=== PATIENT | female | born 1935 | race Caucasian/White ===

== ENCOUNTER 2018-10-15 11:23 | Emergency (ER) | payer OTHER ==
--- NOTE | 2018-10-15 11:47 | PDOC ---
History of Present Illness - General Chief Complaint: Pain Stated Complaint: PAIN TO BOTH KNEES Time Seen by Provider: 10/15/18 11:46 - History of Present Illness Initial Comments: 10/15/18 12:09 Chief complaint: Pain and swelling right knee History of present illness: Patient has noted pain and swelling in the right knee gradually worsening over the course of several days. No acute injury. The pain is primarily located lateral to the patella and radiates to the thigh and the calf. Review of systems: No acute injury or strain as noted above. No distal numbness tingling pain or weakness in the foot or ankle. No posterior calf swelling or pain. No chest pain, shortness of breath, abdominal pain, nausea, vomiting, diarrhea, visual or focal neurologic symptoms. Gait is impaired because of pain and favoring of the right knee. Past medical history: High blood pressure, elevated cholesterol, hypothyroidism on appropriate medications Social/family history reviewed and noncontributory Physical exam: Alert and oriented well-developed well-nourished no acute distress cheerful and cooperative Afebrile, vital signs normal HEENT clear Neck supple without bruit mass or nodes Chest clear CV regular without murmur or gallop Abdomen benign Right knee: There is moderate diffuse swelling of the knee with diffuse tenderness to palpation, but more pronounced over the lateral collateral ligament. No leigha effusion is appreciated. There is full range of motion. Examination of the ligaments for stress tenderness or laxity is impaired by the size of the leg and the patient's guarding. Pulses full. No distal sensory or motor deficits. Swelling or tenderness, no pelvic or cords, Homans negative. Impression: Trauma, this is most likely a flareup with superimposed osteoarthritis. Rule out displacement of prosthesis. Rule out less likely possibility of DVT. Plan: X-ray and venous Doppler. Further management depending on results. Past History - Past Medical History Allergies/Adverse Reactions: Allergies Allergy/AdvReac Type Severity Reaction Status Date / Time No Known Drug Allergies Allergy Verified 10/15/18 11:30 Home Medications: Ambulatory Orders Amlodipine Besylate 20 mg PO DAILY 10/15/18 Atorvastatin Ca [Lipitor] 20 mg PO HS 10/15/18 Cholecalciferol (Vitamin D3) [Vitamin D3] 2,000 unit PO DAILY 10/15/18 Cranberry Fruit Extract [Cranberry] 650 mg PO 10/15/18 Cyanocobalamin (Vitamin B-12) [Vitamin B12] 2,500 mcg PO DAILY 10/15/18 Levothyroxine [Synthroid -] 100 mcg PO DAILY 10/15/18 Losartan/Hydrochlorothiazide [Losartan-Hctz 100-25 mg Tab] 1 tab PO DAILY Omeprazole 20 mg PO DAILY 10/15/18 Oxycodone HCl/Acetaminophen [Percocet 5-325 mg Tablet] 1 - 2 tab PO Q6H PRN #20 tab MDD 8 10/15/18 Polyethylene Glycol 3350 [Miralax 119 gm Btl -] 1 tsp PO HS 10/15/18 Potassium Chloride 20 meq PO DAILY 10/15/18 Anemia: No Asthma: No Cancer: No Cardiac Disorders: No CVA: No COPD: No CHF: No Dementia: No Diabetes: No GI Disorders: Yes (HEARTBURN) Disorders: Yes (FREQUENT UTIS-DECREASED SINCE USING CRANBERRY) HTN: Yes Hypercholesterolemia: Yes Liver Disease: No Seizures: No Thyroid Disease: Yes (HYPOTHYROIDISM) - Surgical History Abdominal Surgery: No Appendectomy: No Cardiac Surgery: No Cholecystectomy: No Lung Surgery: No Neurologic Surgery: No Orthopedic Surgery: No - Suicide/Smoking/Psychosocial Hx Smoking History: Former smoker Have you smoked in the past 12 months: No If you are a former smoker, when did you quit?: 1981-WAS NOT A HEAVY SMOKER Hx Alcohol Use: Yes ("SELDOM") Drug/Substance Use Hx: No Substance Use Type: Alcohol Hx Substance Use Treatment: No Medical Decision Making - Medical Decision Making 10/15/18 14:57 X-ray and venous Doppler are negative. Prosthesis is intact, in good position, and there is no evidence of DVT Leg is too large for knee immobilizer to be applied. Patient is advised rest ice and elevation. She states that ibuprofen is not helpful, so additional pain medication as prescribed. She has an appointment with her orthopedist in several days, and results of her studies from today were supplied so she could take these to her appointment. Adequately ambulatory upon discharge the son to follow-up as scheduled. *DC/Admit/Observation/Transfer Diagnosis at time of Disposition: Osteoarthritis of right knee Qualifiers: Osteoarthritis type: unspecified Qualified Code(s): M17.11 - Unilateral primary osteoarthritis, right knee - Discharge Dispostion Disposition: HOME Condition at time of disposition: Stable Decision to Admit order: No - Prescriptions Prescriptions: Oxycodone HCl/Acetaminophen [Percocet 5-325 mg Tablet] 1 - 2 tab PO Q6H PRN #20 tab MDD 8 PRN Reason: Severe Pain - Referrals Referrals: Caleb Ortiz MD [Primary Care Provider] - - Patient Instructions Printed Discharge Instructions: DI for Osteoarthritis, DI for Knee Sprain Additional Instructions: Rest, elevate, ice, and medication as needed. See orthopedist as scheduled. Return to ER if symptoms worsen or other symptoms develop. - Post Discharge Activity
[2018-10-15 11:48] VITALS: BP 173/87; PULSE 63; TEMP 98.3; BMI 35.4
== END 2018-10-15 15:14 | disposition home or self-care (01) ==
LOC: FER 11:23
PROC: 2W3QX1Z Immobilization of Right Lower Leg using Splint (ICD-10-PCS; principal; 2018-10-15)
DX: M17.11 Unilateral primary osteoarthritis, right knee (principal); Z87.891 Personal history of nicotine dependence; E03.9 Hypothyroidism, unspecified; E78.00 Pure hypercholesterolemia, unspecified; I10 Essential (primary) hypertension; R12 Heartburn
CPT/HCPCS: 29515; 73560-TC-RT-FY; 93971-TC; 99282-25

== ENCOUNTER 2019-11-19 06:02 | Inpatient (IN) | payer OTHER ==
[2019-11-13 10:15] VITALS: BMI 35.4
--- NOTE | 2019-11-18 18:38 | HP ---
Admitting History and Physical - Admission Chief Complaint: Right hip osteoarthritis x years History of Present Illness: 84 year old female presents in regard to her right hip. Longstanding history of osteoarthritis of her right hip. Patient complains of pain, limited ROM, difficulty with ambulation and completing ADLs. Patient has failed conservative treatment option including PO medications, injections, exercise programs and activity modifications. Radiographs reveal severe osteoarthritis of the right hip joint. At this point, patient would like to proceed with a right total hip arthroplasty, MAKOplasty. History Source: Patient - Past Medical History Cardiovascular: Yes: HTN, Hyperlipdemia, Other (Hypokalemia) Gastrointestinal: Yes: Constipation, GERD Endocrine: Yes: Hypothyroidism - Past Surgical History Additional Past Surgical History: See written history & physical. - Advance Directives Advance Directives: Yes: Health Care Proxy - Smoking History Smoking history: Former smoker Have you smoked in the past 12 months: No If you are a former smoker, when did you quit?: 1980-WAS NOT A HEAVY SMOKER - Alcohol/Substance Use Hx Alcohol Use: Yes ("SELDOM") Home Medications - Allergies Allergies/Adverse Reactions: Allergies Allergy/AdvReac Type Severity Reaction Status Date / Time No Known Drug Allergies Allergy Verified 11/13/19 09:55 - Home Medications Home Medications: Ambulatory Orders Atorvastatin Ca [Lipitor] 20 mg PO HS 10/15/18 Cholecalciferol (Vitamin D3) [Vitamin D3] 2,000 unit PO DAILY 10/15/18 Cyanocobalamin (Vitamin B-12) [Vitamin B12] 2,500 mcg PO DAILY 10/15/18 Levothyroxine [Synthroid -] 100 mcg PO DAILY 10/15/18 Losartan/Hydrochlorothiazide [Losartan-Hctz 100-25 mg Tab] 1 tab PO DAILY 10/15/18 Omeprazole 20 mg PO DAILY 10/15/18 Polyethylene Glycol 3350 [Miralax 119 gm Btl -] 1 appful PO HS 10/15/18 Potassium Chloride 20 meq PO BID 10/15/18 Amlodipine Besylate [Norvasc -] 5 mg PO DAILY 11/13/19 Cranberry 500 mg PO DAILY 11/13/19 Review of Systems - Review of Systems Musculoskeletal: reports: Decreased ROM (right hip), Joint Pain (right hip) Physical Examination Constitutional: Yes: Well Nourished, No Distress Eyes: Yes: Conjunctiva Clear HENT: Yes: Atraumatic Neck: Yes: Supple Cardiovascular: Yes: Regular Rate and Rhythm Respiratory: Yes: Regular Gastrointestinal: Yes: Soft ...Rectal Exam: Yes: Deferred Musculoskeletal: Yes: Joint Stiffness (right hip), Other (Limited ROM right hip) Assessment/Plan 84 year old female presents in regard to her right hip. Longstanding history of osteoarthritis of her right hip. Patient complains of pain, limited ROM, difficulty with ambulation and completing ADLs. Patient has failed conservative treatment option including PO medications, injections, exercise programs and activity modifications. Radiographs reveal severe osteoarthritis of the right hip joint. At this point, patient would like to proceed with a right total hip arthroplasty, MAKOplasty. Pros, cons, risks, benefits and alternatives of a right total hip arthroplasty, MAKOplasty was discussed with the patient at length. Patient confirms their understanding and consents to proceed with a right total hip arthroplasty, MAKOplasty.
[2019-11-19] MEDS ORDERED: BUPIVACAINE HCL/PF 0.5% (5 MG/ML) 30 ML VIAL IJ ONE (06:47)
[2019-11-19] MEDS ORDERED: MIDAZOLAM HCL 2 MG/2 ML SINGLE DOSE VIAL ONE (06:47)
[2019-11-19] MEDS ORDERED: oxyCODONE HCL 10 MG SUSTAINED ACTING TABLET PO ONE (06:51)
[2019-11-19] MEDS ORDERED: CELECOXIB 200 MG CAPSULE PO ONE (06:51)
[2019-11-19] MEDS: PANTOPRAZOLE 40 MG TABLET PO ONE (07:00)
[2019-11-19] MEDS ORDERED: ceFAZolin SODIUM 1 GM VIAL ONE ×2 (07:11→07:20)
[2019-11-19] MEDS ORDERED: VANCOMYCIN 1,000 MG VIAL (RESTRICTED TO ID ONLY) ONE (07:12)
[2019-11-19] MEDS ORDERED: EPHEDRINE SULFATE/0.9% NACL/PF 50 MG/10 ML SYRINGE NR ONE (07:22)
[2019-11-19] MEDS ORDERED: DEXMEDETOMIDINE HCL 200 MCG/2 ML IVPB ONE (07:29)
[2019-11-19] MEDS ORDERED: CEFAZOLIN 2 GM in DEXTROSE 5%-WATER - 50 ML IVPB ONE (08:00)
[2019-11-19] MEDS ORDERED: BUPIVICAINE 0.25%/MORPH PF/KETOROLAC - 51ML DISP.SYRINGE IA ONE ×2 (08:00→10:37)
[2019-11-19] MEDS ORDERED: TRANEXAMIC ACID 1000 MG/10 ML VIAL IVPUSH ONE (08:00)
[2019-11-19] MEDS ORDERED: PROPOFOL 20 ML ONE ×3 (08:53→10:54)
[2019-11-19] MEDS ORDERED: VANCOMYCIN 1,000 MG VIAL (RESTRICTED TO ID ONLY) IVPB ONE ×2 (09:32→10:27)
[2019-11-19] MEDS ORDERED: TRANEXAMIC ACID 1000 MG/10 ML VIAL IVPB ONE ×2 (09:34→11:01)
--- NOTE | 2019-11-19 11:23 | SURG ---
Surgery Batter Scaler Note Batter Scaler: Cruz Delgado PA-C Date of Service: 11/19/19 Diagnosis: Right hip osteoarthritis Procedure: Right hip oscar assisted arthroplasty I was present for the entirety of the operative procedure. For further detail, please refer to operative report. Visit type - Case Type Case Type: Scheduled - Emergency Emergency Visit: No - New patient This patient is new to me today: Yes Date on this admission: 11/19/19 - Critical Care Critical Care patient: No
[2019-11-19] MEDS ORDERED: PROMETHAZINE HCL 25 MG/1 ML VIAL IVPUSH PRN (11:27)
[2019-11-19] MEDS ORDERED: oxyCODONE HCL 5 MG TABLET PO PRN ×2 (11:27)
[2019-11-19] MEDS ORDERED: ONDANSETRON 4 MG/2 ML VIAL IVPUSH PRN ×2 (11:27→11:43)
--- NOTE | 2019-11-19 11:38 | OP ---
Operative Note - Note: Operative Date: 11/19/19 Pre-Operative Diagnosis: right hip OA Operation: Right RANJAN KAYODE Post-Operative Diagnosis: Same as Pre-op Surgeon: Darion Mireles Airplane Engineer: Cruz Delgado Anesthesia: Spinal Estimated Blood Loss (mls): 200
[2019-11-19] MEDS ORDERED: ACETAMINOPHEN 1000 MG/100 ML VIAL (NON FORMULARY) IVPB ONE (11:40)
[2019-11-19] MEDS ORDERED: MAG HYDROX/AL HYDROX/SIMETH 30 ML UNIT-DOSE CUP PO PRN (11:43)
[2019-11-19] MEDS ORDERED: MAGNESIUM HYDROX 2400MG/30ML ORAL SUSPENSION 30 ML CUP PO PRN (11:43)
[2019-11-19] MEDS ORDERED: LACTATED RINGERS SOLUTION 1,000 ML IV SCH (11:45)
[2019-11-19] MEDS: KETOROLAC TROMETHAMINE 30 MG/1 ML VIAL IVPUSH SCH ×3 (11:50→23:17)
[2019-11-19] MEDS: traMADol HCL 50 MG TABLET PO SCH ×3 (12:00→23:16)
[2019-11-19] MEDS: CEFAZOLIN 2 GM/D5W 2 GM/50 ML ML IVPB SCH ×2 (15:07→23:15)
[2019-11-19] MEDS: ACETAMINOPHEN 325 MG TABLET (FP) PO SCH ×2 (17:28→23:17)
[2019-11-19] MEDS ORDERED: DEXAMETHASONE SOD PHOSPHATE 10 MG/1 ML VIAL IVPB ONE (20:00)
[2019-11-19] MEDS: ASCORBIC ACID 500 MG TABLET (FP) PO SCH (21:55)
[2019-11-19] MEDS: ATORVASTATIN CA 20 MG TABLET (FP) PO SCH (21:56)
[2019-11-19] MEDS: CELECOXIB 200 MG CAPSULE PO SCH (21:56)
[2019-11-19] MEDS: POTASSIUM CHLORIDE TABS 20 MEQ TABLET.ER (FP) PO SCH (21:56)
[2019-11-19] MEDS: GABAPENTIN 300 MG CAPSULE PO SCH (21:56)
[2019-11-19] MEDS: amLODIPine BESYLATE 5 MG TABLET (FP) PO SCH (21:56)
[2019-11-19] MEDS: POLYETHYLENE GLYCOL 3350 119 GM BTL PO SCH (21:57)
[2019-11-19] MEDS: SENNOSIDES/DOCUSATE COMBO (SENNA PLUS) TABLET (UD) PO SCH (21:57)
[2019-11-20] MEDS: ACETAMINOPHEN 325 MG TABLET (FP) PO SCH ×3 (06:16→17:00)
[2019-11-20] MEDS: traMADol HCL 50 MG TABLET PO SCH ×3 (06:16→17:17)
[2019-11-20] MEDS: LEVOTHYROXINE NA 100 MCG TABLET (FP) PO SCH (06:16)
[2019-11-20] MEDS: KETOROLAC TROMETHAMINE 30 MG/1 ML VIAL IVPUSH SCH (06:17)
[2019-11-20 08:19] LABS: CALCIUM 8.6 mg/dl (8.5-10); CREATININE 1.4 mg/dl (0.55-1.3); POTASSIUM 4.3 mmol/L (3.5-5.1)
[2019-11-20 08:28] LABS: HEMATOCRIT 28.8 % (32.4-45.2); HEMOGLOBIN 9.9 GM/dl (10.7-15.3); MCH 30.2 pg (25.7-33.7); MCHC 34.3 g/dl (32.0-36.0); MEAN PLT VOLUME 9.3 fl (7.5-11.1); PLATELET COUNT 148 K/MM3 (134-434); RBC 3.28 M/mm3 (3.60-5.2); RDW 12.9 % (11.6-15.6); WHITE BLOOD COUNT 8.1 K/mm3 (4.0-10.8)
[2019-11-20] MEDS: ASPIRIN 325 MG TABLET PO SCH (08:45)
[2019-11-20] MEDS: LOSARTAN 50MG/HCTZ 12.5MG 1 TAB (FP) PO SCH (09:13)
[2019-11-20] MEDS: CELECOXIB 200 MG CAPSULE PO SCH ×2 (09:13→22:14)
[2019-11-20] MEDS: ASCORBIC ACID 500 MG TABLET (FP) PO SCH ×2 (09:13→22:15)
[2019-11-20] MEDS: GABAPENTIN 300 MG CAPSULE PO SCH ×2 (09:14→22:14)
[2019-11-20] MEDS: POTASSIUM CHLORIDE TABS 20 MEQ TABLET.ER (FP) PO SCH ×2 (09:14→22:14)
[2019-11-20] MEDS: MULTIVITAMINS (DAILY MVI) TABLET (FP) PO SCH (09:14)
[2019-11-20] MEDS: PANTOPRAZOLE 40 MG TABLET PO SCH (09:14)
[2019-11-20] MEDS: SENNOSIDES/DOCUSATE COMBO (SENNA PLUS) TABLET (UD) PO SCH ×2 (09:15→22:15)
[2019-11-20] MEDS ORDERED: PATIENT'S OWN MEDICATION (NON-FORMULARY) (Losartan/Hydrochlorothiazide [Losartan-Hctz 100- PO SCH (10:00)
--- NOTE | 2019-11-20 12:05 | PN ---
Progress Note (short form) - Note Progress Note: ANESTHESIA POSTOP 84 YO FEMALE POD#1 S/P RIGHT TOTAL HIP ARTHROPLASTY, SPINAL, PNB Patient sitting in chair, eating lunch. Pain is minimal. VSS, Afebrile Continue current care. Encouraged active participation in PT and use of IS. No anesthetic complications.
--- NOTE | 2019-11-20 15:44 | SPEC ---
DATE OF OPERATION: 11/19/2019 PREOPERATIVE DIAGNOSIS: Right hip osteoarthritis. POSTOPERATIVE DIAGNOSIS: Right hip osteoarthritis. PROCEDURE: Right total hip replacement with MAKOplasty robotic navigation. ATTENDING: Avelino Olmedo MD BEAM WARPER: Cruz Delgado PA-C ANESTHESIA: Spinal plus sedation. ESTIMATED BLOOD LOSS: 200 mL. COMPLICATIONS: None. DISPOSITION: The patient was transferred to the PACU in stable condition. IMPLANTS USED: Gilson Accolade II size 5 femoral component, [place] Trident II 52-mm acetabular component with MDM bipolar head ball and liner, and inner ceramic +4-mm offset head ball. Also used were 20- and 30-mm acetabular screws. INDICATIONS: This is an 84-year-old female who presented to the office complaining of severe right hip pain. She was seen and examined by Dr. Olmedo and diagnosed with severe right hip osteoarthritis. The patient was initially treated conservatively but continued to have severe pain and ambulatory dysfunction. She was, therefore, indicated for a right total hip replacement. The risks, benefits, and alternatives to the procedure were explained to the patient in great detail and she elected to proceed with the surgery. On the day of surgery, the patient was taken to the operating room and placed on the OR table. Spinal anesthesia was administered by the anesthesiologist. The patient was then positioned in the lateral decubitus position on the table and all bony prominences were padded. An axillary roll was placed. The operative hip was then prepped and draped in the usual sterile fashion and intravenous antibiotics were given for infection prophylaxis. A surgical time-out was then performed with the team, and the patients identity, procedure, side, availability of implants, and the administration of antibiotics were confirmed. An approximately 15-cm longitudinal incision was made through the skin centered on the greater trochanter of the hip. This dissection was carried down through the subcutaneous tissues to the deep fascia. This fascia was then incised and a Cobra was placed around the inferior femoral neck. Electrocautery was used to reflect the anterior 40% of the gluteus medius and minimus starting at the musculotendinous junction and leaving a cuff for closure. This was reflected to reveal the capsule of the hip joint. An anterior capsulectomy was performed and the femoral head and neck were visualized. Grade 4 changes were noted diffusely throughout the joint. At this point, three small stab incisions were made superior to the main incision along the iliac crest. Three self-drilling Steinmann pins were then placed and the CogniK pelvic array was attached. Reference points on the limb were then entered into the robotic device and the limb length deficiency, offset, and femoral neck resection level were then calculated by the software. The hip was then dislocated with traction and external rotation. An oscillating saw was used to make the femoral neck cut at the level previously templated, and the femoral head was removed. Attention was then turned to the acetabulum. Retractors were then placed around the acetabulum and the labrum was removed. An acetabular checkpoint pin and the CogniK software were used to register the contours of the acetabulum. The acetabulum was then reamed in a single stage to the preoperatively templated size using the CogniK robotic arm. The appropriately sized cup was then impacted and had solid fixation as well as the preset inclination and version of 40 and 20 degrees, respectively. A polyethylene liner was then placed in the cup. Attention was then turned back to the femur, which was externally rotated for improved visualization. A femoral neck elevator was used to present the femoral neck cut, a box osteotome was used to enter the femoral canal, and a canal finder was used to go down the femoral shaft. The Gordon broaches were used sequentially until the optimal scratch fit was achieved. This correlated with the preoperatively templated size. From here, several different offset head and neck configurations were tested until excellent stability and length were obtained. These measurements were quantified using the CogniK software. All trial components were then removed, the femur was copiously irrigated, and the final components were placed. Leg length and stability were checked again and found to be excellent. Irrigation was performed again. Wound closure was started by repairing the abductor muscles with a no. 2 FiberWire stitch in a Krackow configuration passed through bone tunnels in the greater trochanter and tied over a bony bridge. This repair was then reinforced with a 0 V-Loc 180 barbed suture. Next, no. 1 Polysorb and 0 V-Loc 180 were used to close the fascia. The deep subcutaneous tissue was closed with no. 1 Polysorb sutures, and 2-0 Polysorb was used for the superficial subcutaneous tissue. The skin was closed using both 3-0 V-Loc 90 suture in a running subcuticular fashion and SwiftSet skin adhesive. The Gordon array and pins were removed from the iliac crest and the stab incision sites were irrigated and closed with 4-0 Polysorb sutures and SwiftSet skin adhesive. Once this was completed, a sterile dressing was applied. The patient was then awakened and taken to the PACU in stable condition. ADDENDUM: After final implants were placed, a 3-minute dilute Betadine soak was performed. Following this, the wound was thoroughly irrigated with normal saline via pulsatile lavage and wound closure was begun. AVELINO OLMEDO M.D. [id number]
[2019-11-20] MEDS: amLODIPine BESYLATE 5 MG TABLET (FP) PO SCH (22:14)
[2019-11-20] MEDS: ATORVASTATIN CA 20 MG TABLET (FP) PO SCH (22:15)
[2019-11-20] MEDS: POLYETHYLENE GLYCOL 3350 119 GM BTL PO SCH (22:16)
[2019-11-21] MEDS: ACETAMINOPHEN 325 MG TABLET (FP) PO SCH ×3 (00:15→11:21)
[2019-11-21] MEDS: traMADol HCL 50 MG TABLET PO SCH ×3 (00:16→11:19)
--- NOTE | 2019-11-21 00:16 | PN ---
Progress Note (short form) - Note Progress Note: Pt seen and examined. Doing well. AVSS Selected Entries 11/20/19 22:00 Temperature 97.8 F Pulse Rate 69 Respiratory 18 Rate Blood Pressure 154/66 O2 Sat by Pulse 96 Oximetry (%) Oxygen Delivery Room Air Method Laboratory Tests 11/20/19 11/20/19 07:02 07:02 WBC 8.1 Hgb 9.9 L Hct 28.8 L Plt Count 148 Sodium 135 L Potassium 4.3 Chloride 102 Carbon Dioxide 23 Anion Gap 10 BUN 49.0 H Creatinine 1.4 H Est GFR (CKD-EPI)AfAm 40.17 Est GFR (CKD-EPI)NonAf 34.66 Random Glucose 163 H Calcium 8.6 Gen: NAD RLE: c/d/i, NVID A/P POD#1 s/p R KAYODE PT/OOB D/C home in AM
--- NOTE | 2019-11-21 00:17 | DS ---
Physical Examination Vital Signs: Vital Signs Temperature 97.8 F 11/20/19 22:00 Pulse Rate 69 11/20/19 22:00 Respiratory Rate 18 11/20/19 22:00 Blood Pressure 154/66 11/20/19 22:00 O2 Sat by Pulse Oximetry (%) 96 11/20/19 22:00 Labs: CBC, BMP 11/20/19 07:02 11/20/19 07:02 Discharge Summary Problems reviewed: Yes Reason For Visit: RIGHT HIP OSTEOARTHRITIS Current Active Problems Osteoarthritis of right hip (Acute) Procedures: Principal: right RANJAN KAYODE Hospital Course: Admitted for elective surgery. Procedure performed without complications. Pt received postoperative antibiotic prophylaxis and DVT ppx. Ambulated with physical therapy. Stable for discharge home with outpatient followup. Condition: Stable - Instructions Diet, Activity, Other Instructions: Dr Mireles - Hip Replacement Instructions Keep the Aquacel dressing on until removed by Dr. Mireles in 2 weeks - it is antibacterial and waterproof and you can shower with it on. Call the office for a follow-up appointment with Dr. Mireles in 2 weeks. [phone] Take one Aspirin 325mg daily for 6 weeks to prevent blood clots in your legs. Resume taking Omeprazole 20mg daily for 6 weeks to protect against heartburn and ulcers. Take Cephalexin (antibiotic) 3x/day for 10 days to help prevent skin infection. Take Celebrex 200mg daily for 30 days to reduce swelling and inflammation. Take a multivitamin, stool softener and extra Vitamin C supplement daily. For pain: *Mild pain (1-3/10): Take 1 Tramadol tablet every 4 hours as needed. Moderate pain (4-6/10): Take 1 Tramadol tablet and 1 Percocet tablet every 4 hours as needed. Severe pain (7-10/10): Take 1 Tramadol tablet and 2 Percocet tablets every 4 hours as needed. Activity: You can put as much weight on the operative leg as you want. For the first 6 weeks, all you need to do is walk around the house, go up/down stairs, and sit down/get up. After 6 weeks when everything is healed (and bone has grown into the implant) you will be sent for more intensive outpatient physical therapy. Always use a walker or cane for balance and to prevent falls. Expect to see swelling / bruising from the operative site all the way down to your toes. Wear the Compression stocking on the operative side during the day to minimize how much swelling there is in your foot/ankle. Don't wear the stocking at night. You don't have to wear the stocking on the other side. Disposition: VNS/HOME HEALTH CARE - Home Medications Comprehensive Discharge Medication List: Ambulatory Orders Atorvastatin Ca [Lipitor] 20 mg PO HS 10/15/18 Cholecalciferol (Vitamin D3) [Vitamin D3] 2,000 unit PO DAILY 10/15/18 Cyanocobalamin (Vitamin B-12) [Vitamin B12] 2,500 mcg PO DAILY 10/15/18 Levothyroxine [Synthroid -] 100 mcg PO DAILY 10/15/18 Losartan/Hydrochlorothiazide [Losartan-Hctz 100-25 mg Tab] 1 tab PO DAILY 10/15/18 Omeprazole 20 mg PO DAILY 10/15/18 Polyethylene Glycol 3350 [Miralax 119 gm Btl -] 1 appful PO HS 10/15/18 Potassium Chloride 20 meq PO BID 10/15/18 Amlodipine Besylate [Norvasc -] 5 mg PO HS 11/13/19 Cranberry 500 mg PO DAILY 11/13/19 Ascorbic Acid [Vitamin C -] 500 mg PO BID tablet 11/20/19 Aspirin [ASA -] 325 mg PO DAILY@0800 tablet 11/20/19 Celecoxib [CeleBREX -] 200 mg PO DAILY #30 capsule 11/20/19 Cephalexin Monohydrate [Keflex -] 500 mg PO TID #30 capsule 11/20/19 Multivitamins [Multivit ([facility] Formulary)] 1 tab PO DAILY tab 11/20/19 Omeprazole 20 mg PO DAILY #40 tablet. 11/20/19 Oxycodone HCl/Acetaminophen [Percocet 5-325 mg Tablet] 1 - 2 tab PO Q4H PRN #60 tablet MDD 10 11/20/19 traMADol HCL [Ultram -] 50 mg PO Q4H PRN #42 tablet MDD 6 11/20/19
[2019-11-21 03:16] VITALS: TEMP 97.9
[2019-11-21] MEDS: LEVOTHYROXINE NA 100 MCG TABLET (FP) PO SCH (06:12)
[2019-11-21 07:00] VITALS: BP 126/58; PULSE 59
[2019-11-21 08:36] LABS: HEMATOCRIT 27.4 % (32.4-45.2); HEMOGLOBIN 9.4 GM/dl (10.7-15.3); MCH 30.6 pg (25.7-33.7); MCHC 34.3 g/dl (32.0-36.0); MEAN CELL VOLUME 89.2 fl (80-96); MEAN PLT VOLUME 9.2 fl (7.5-11.1); PLATELET COUNT 169 K/MM3 (134-434); RBC 3.07 M/mm3 (3.60-5.2); RDW 13.2 % (11.6-15.6); WHITE BLOOD COUNT 9.4 K/mm3 (4.0-10.8)
[2019-11-21 08:42] LABS: CREATININE 1.3 mg/dl (0.55-1.3); POTASSIUM 4.7 mmol/L (3.5-5.1)
[2019-11-21] MEDS: ASPIRIN 325 MG TABLET PO SCH (09:16)
[2019-11-21] MEDS: POTASSIUM CHLORIDE TABS 20 MEQ TABLET.ER (FP) PO SCH (09:16)
[2019-11-21] MEDS: GABAPENTIN 300 MG CAPSULE PO SCH (09:16)
[2019-11-21] MEDS: ASCORBIC ACID 500 MG TABLET (FP) PO SCH (09:17)
[2019-11-21] MEDS: LOSARTAN 50MG/HCTZ 12.5MG 1 TAB (FP) PO SCH (09:17)
[2019-11-21] MEDS: PANTOPRAZOLE 40 MG TABLET PO ONE (09:17)
[2019-11-21] MEDS: CELECOXIB 200 MG CAPSULE PO SCH (09:17)
[2019-11-21] MEDS: SENNOSIDES/DOCUSATE COMBO (SENNA PLUS) TABLET (UD) PO SCH (09:30)
[2019-11-21] MEDS: MULTIVITAMINS (DAILY MVI) TABLET (FP) PO SCH (09:30)
[2019-11-21] MEDS: PANTOPRAZOLE 40 MG TABLET PO SCH (09:30)
--- NOTE | 2019-11-25 14:13 | PATH ---
Surgical Pathology Report Patient Name: MARIA COLLINS Med. Rec. #: [id number] /Age/Gender: 1935 (Age: 84) / F Account: [id number] Location: [facility] MED-[facility]URG Taken: 11/19/2019 Received: 11/19/2019 Reported: 11/25/2019 Physicians: Darion Mireles M.D. Specimen(s) Received RIGHT FEMORAL HEAD Clinical History Right hip osteoarthritis Final Diagnosis FEMORAL HEAD, RIGHT, TOTAL HIP PLACEMENT: DEGENERATIVE JOINT DISEASE. Electronically Signed Dalia Menjivar M.D. Gross Description Received in formalin, labeled "right femoral head," is a 4.3 x 4.3 x 3.8 cm. femoral head with a 1.3 cm in length portion of femoral neck attached. The margin of resection is smooth. There is a 4.0 cm in greatest dimension area of eburnation present. The remaining articular surface is johnson-yellow, focally granular and focally lifting away from the underlying bone. The underlying trabecular bone is yellow and displays focal possible necrosis. A office machines sales representative section is submitted in one cassette, following decalcification. /11/20/2019 [facility]/11/20/2019
== END 2019-11-21 11:56 | disposition home health service (06) | DRG 470 ==
LOC: FM/S 06:02
PROVIDERS: ADMIT Student in an Organized Health Care Education/Training Program; ATTEND Student in an Organized Health Care Education/Training Program
PROC: 8E0W0CZ Robotic Assisted Procedure of Trunk Region, Open Approach (ICD-10-PCS; 2019-11-19)
PROC: 0SR90JZ Replacement of Right Hip Joint with Synthetic Substitute, Open Approach (ICD-10-PCS; principal; 2019-11-19 08:30)
DX: M16.11 Unilateral primary osteoarthritis, right hip (principal); I10 Essential (primary) hypertension; E78.5 Hyperlipidemia, unspecified; K21.9 Gastro-esophageal reflux disease without esophagitis; E03.9 Hypothyroidism, unspecified; E87.6 Hypokalemia; K59.00 Constipation, unspecified; Z87.891 Personal history of nicotine dependence
CPT/HCPCS: 36415; 73502-TC-RT-FY; 80048; 85027; 88305-TC; 88311-TC; 94760; 97116-GP; 97163-GP; J0131; J1100

== ENCOUNTER 2019-11-22 16:43 | Inpatient (IN) | payer OTHER ==
--- NOTE | 2019-11-22 17:06 | PDOC ---
History of Present Illness - General Chief Complaint: Revisit,Wound Recheck Stated Complaint: POST SURGICAL PAIN Time Seen by Provider: 11/22/19 16:57 History Source: Patient Exam Limitations: No Limitations - History of Present Illness Initial Comments: 11/22/19 17:01 84 y/o female with right hip pain. Patient states that she had a hip replacement by Dr. Mireles on and went home yesterday. She heard a pop yesterday and today unable to walk on leg. Also noticed that right leg is shorter and needs to stand on tiptoe. No fever or chills. No fall or trauma. Past History - Medical History Allergies/Adverse Reactions: Allergies Allergy/AdvReac Type Severity Reaction Status Date / Time No Known Drug Allergies Allergy Verified 11/13/19 09:55 Home Medications: Ambulatory Orders Atorvastatin Ca [Lipitor] 20 mg PO HS 10/15/18 Cholecalciferol (Vitamin D3) [Vitamin D3] 2,000 unit PO DAILY 10/15/18 Cyanocobalamin (Vitamin B-12) [Vitamin B12] 2,500 mcg PO DAILY 10/15/18 Levothyroxine [Synthroid -] 100 mcg PO DAILY 10/15/18 Losartan/Hydrochlorothiazide [Losartan-Hctz 100-25 mg Tab] 1 tab PO DAILY 10/15/18 Polyethylene Glycol 3350 [Miralax 119 gm Btl -] 1 appful PO HS 10/15/18 Potassium Chloride 20 meq PO BID 10/15/18 Amlodipine Besylate [Norvasc -] 5 mg PO HS 11/13/19 Cranberry 500 mg PO DAILY 11/13/19 Ascorbic Acid [Vitamin C -] 500 mg PO BID tablet 11/20/19 Aspirin [ASA -] 325 mg PO DAILY@0800 tablet 11/20/19 Celecoxib [CeleBREX -] 200 mg PO DAILY #30 capsule 11/20/19 Cephalexin Monohydrate [Keflex -] 500 mg PO TID #30 capsule 11/20/19 Multivitamins [Multivit ([facility] Formulary)] 1 tab PO DAILY tab 11/20/19 Omeprazole 20 mg PO DAILY #40 tablet. 11/20/19 Oxycodone HCl/Acetaminophen [Percocet 5-325 mg Tablet] 1 - 2 tab PO Q4H PRN #60 tablet MDD 10 06/26/20 traMADol HCL [Ultram -] 50 mg PO Q4H PRN #42 tablet MDD 6 11/20/19 Anemia: No Asthma: No Cancer: No Cardiac Disorders: No CVA: No COPD: No CHF: No Dementia: No Diabetes: No GI Disorders: Yes (HEARTBURN) Disorders: Yes (FREQUENT UTIS-DECREASED SINCE USING CRANBERRY) HTN: Yes Hypercholesterolemia: Yes Liver Disease: No Seizures: No Thyroid Disease: Yes (HYPOTHYROIDISM) - Surgical History Abdominal Surgery: No Appendectomy: No Cardiac Surgery: No Cholecystectomy: No Lung Surgery: No Neurologic Surgery: No Orthopedic Surgery: Yes (BILATERAL KNEE REPLACEMENT 2014) - Psycho-Social/Smoking History Smoking History: Former smoker Have you smoked in the past 12 months: No If you are a former smoker, when did you quit?: 1980-WAS NOT A HEAVY SMOKER Review of Systems - Review of Systems Able to Perform ROS?: Yes Is the patient limited Telugu proficient: No Constitutional: No: Chills, Fever Respiratory: No: Cough, Shortness of Breath Cardiac (ROS): No: Chest Pain ABD/GI: No: Nausea, Vomiting : No: Burning, Dysuria Musculoskeletal: Yes: Joint Pain. No: Back Pain, Joint Swelling All Other Systems: Reviewed and Negative *Physical Exam - Physical Exam General Appearance: Yes: Nourished, Appropriately Dressed. No: Apparent Distress HEENT: positive: EOMI, LEAH, Normal ENT Inspection, Normal Voice, Symmetrical, Pharynx Normal Neck: positive: Trachea midline, Normal Thyroid, Supple. negative: Tender, Rigid Respiratory/Chest: positive: Lungs Clear, Normal Breath Sounds. negative: Chest Tender, Respiratory Distress Cardiovascular: positive: Regular Rhythm, Regular Rate, S1, S2. negative: Edema, JVD, Murmur Vascular Pulses: Femoral (R): 4+, Femoral (L): 4+, Carotid (R): 4+, Carotid (L): 4+, Dorsalis-Pedis (R): 4+, Doralis-Pedis (L): 4+ Gastrointestinal/Abdominal: positive: Normal Bowel Sounds, Flat, Soft. negative: Tender, Organomegaly, Pulsatile Mass Lymphatic: negative: Adenopathy, Tenderness, Other Musculoskeletal: negative: Normal Inspection (right hip wound covered), CVA Tenderness Extremity: positive: Normal Capillary Refill (pulses 2+/4 b/l in LE no focl deficits noted), Pelvis Stable. negative: Normal Inspection (right leg externally rotated and shortended ), Normal Range of Motion (right leg decreased ROM, wound covered), Tender Integumentary: positive: Normal Color, Dry, Warm Neurologic: positive: returned item clerk II-XII NML intact, Fully Oriented, Alert, Normal Mood/Affect, Normal Response, Motor Strength 09/28 ED Treatment Course - ADDITIONAL ORDERS Additional order review: 11/22/19 17:05 Right hip externally rotated with shortening will obtain x-rays to r/o dislocation Pt in agreement with plan 11/22/19 18:[address] Mireles, Orthopedics, will come in to reduce hip X-ray: right hip dislocation At [address] Mirza Discharge - Discharge Information Problems reviewed: Yes Clinical Impression/Diagnosis: Hip dislocation, right Qualifiers: Encounter type: initial encounter Qualified Code(s): S73.004A - Unspecified dislocation of right hip, initial encounter Condition: Good - Follow up/Referral Referrals: Darion Mireles MD [Primary Care Provider] - - Patient Discharge Instructions - Post Discharge Activity
[2019-11-22 17:19] VITALS: BMI 35.4
[2019-11-22] MEDS ORDERED: morphine CARPU-JECT 2 MG/1 ML DISP.SYRIN IVPUSH ONE (19:33)
[2019-11-22] MEDS ORDERED: morphine SULFATE 4 MG/ML VIAL ONE (19:42)
[2019-11-22] MEDS ORDERED: PROPOFOL 200 MG/20 ML VIAL IVPUSH ONE (20:30)
[2019-11-22] MEDS ORDERED: PROPOFOL 20 ML ONE (20:31)
--- NOTE | 2019-11-22 20:33 | PDOC ---
*Physical Exam - Vital Signs Last Vital Signs Temp Pulse Resp BP Pulse Ox 98.1 F 72 16 98/53 L 98 11/22/19 16:53 11/22/19 19:20 11/22/19 19:20 11/22/19 19:20 11/22/19 19:20 ED Treatment Course - Medications Given in the ED: ED Medications Discontinued Medications Generic Name Dose Route Start Last Admin Trade Name Kristen PRN Reason Stop Dose Admin Morphine Sulfate 2 mg 11/22/19 19:33 11/22/19 19:50 Morphine Injection - IVPUSH 11/22/19 19:34 2 mg ONCE ONE Administration Medical Decision Making - Medical Decision Making 11/22/19 20:31 Pt signed out to me for her dislocated prosthetic hip that was placed 3 days ago. Her orthopedist Chi is now at bedside and a relocation/reduction will be attempted with propofol. Pt was premedicated with NSS and 1mg morphine 11/22/19 21:24 Pt will be admitted without reduction, as it seems the hip socket joint became displaced, so pt will be admitted for OR revision Discharge - Discharge Information Problems reviewed: Yes Clinical Impression/Diagnosis: Hip dislocation, right Qualifiers: Encounter type: initial encounter Qualified Code(s): S73.004A - Unspecified dislocation of right hip, initial encounter Condition: Good - Admission Yes - Follow up/Referral Referrals: Darion Mireles MD [Primary Care Provider] - - Patient Discharge Instructions - Post Discharge Activity
[2019-11-22] MEDS ORDERED: LACTATED RINGERS SOLUTION 1,000 ML IV SCH (20:45)
[2019-11-22] MEDS ORDERED: MAGNESIUM HYDROX 2400MG/30ML ORAL SUSPENSION 30 ML CUP PO PRN (20:45)
[2019-11-22] MEDS ORDERED: MAG HYDROX/AL HYDROX/SIMETH 30 ML UNIT-DOSE CUP PO PRN (20:45)
[2019-11-22] MEDS ORDERED: ACETAMINOPHEN 325 MG TABLET (FP) PO PRN (20:49)
[2019-11-22] MEDS ORDERED: oxyCODONE HCL 5 MG TABLET PO PRN ×2 (20:55)
--- NOTE | 2019-11-22 20:55 | HP ---
History & Physical Update - History History: Change (see notes) (84yo [place] s/p R KAYODE 11/19/2019. Discharged home yesterday and dislocated without trauma. Hip abductor muscles found to be severely atrophied intraoperatively. Leg was lengthened and hip was apparently stable intraoperatively.) - Physical Currently as noted:: Shortened, externally rotated. Unable to ambulate. NVID. - Assessment Currently as noted:: 84yo female with prosthetic hip dislocation after KAYODE 11/19/19. 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 Also there may be an associated fracture which occurred intraoperatively leading to loosening or postoperatively when the screws pulled out. Pt will be admitted for revision to multi-hole acetabular component +/- constrained liner, as her abductor muscles are atrophied. Reduction not attempted because acetabular component is loose and from bone. Pt is comfortable and NVID. Pt unable to be taken to OR tomorrow because of COVID policy - needs new nasal swab test done. Will be done today and we will plan for surgery .
[2019-11-22] MEDS ORDERED: ATORVASTATIN CA 20 MG TABLET (FP) ONE (21:28)
[2019-11-22] MEDS ORDERED: POTASSIUM CHLORIDE TABS 20 MEQ TABLET.ER (FP) PO ONE (21:28)
[2019-11-22] MEDS ORDERED: CEPHALEXIN MONOHYDRATE 500 MG CAPSULE (UD) ONE (21:29)
[2019-11-22] MEDS: CEPHALEXIN MONOHYDRATE 500 MG CAPSULE (UD) PO SCH (21:43)
[2019-11-22] MEDS: POTASSIUM CHLORIDE TABS 20 MEQ TABLET.ER (FP) PO SCH (21:43)
[2019-11-22] MEDS ORDERED: ATORVASTATIN CA 20 MG TABLET (FP) PO SCH (22:00)
[2019-11-22] MEDS ORDERED: POLYETHYLENE GLYCOL 3350 119 GM BTL PO SCH (22:00)
[2019-11-22] MEDS ORDERED: amLODIPine BESYLATE 5 MG TABLET (FP) PO SCH (22:00)
[2019-11-22] MEDS ORDERED: oxyCODONE HCL 10 MG SUSTAINED ACTING TABLET PO SCH (22:00)
[2019-11-22] MEDS: ACETAMINOPHEN 325 MG TABLET (FP) PO SCH (22:47)
[2019-11-22] MEDS: traMADol HCL 50 MG TABLET PO SCH (22:47)
[2019-11-22] MEDS: SENNOSIDES/DOCUSATE COMBO (SENNA PLUS) TABLET (UD) PO SCH (22:49)
[2019-11-22] MEDS: FERROUS SO4 325 MG TABLET (FP) PO SCH (22:49)
[2019-11-22] MEDS: ASCORBIC ACID 500 MG TABLET (FP) PO SCH (22:49)
[2019-11-22] MEDS: ONDANSETRON 4 MG/2 ML VIAL IVPUSH PRN (23:26)
[2019-11-23] MEDS: traMADol HCL 50 MG TABLET PO SCH ×2 (05:59→14:22)
[2019-11-23] MEDS: ACETAMINOPHEN 325 MG TABLET (FP) PO SCH ×2 (05:59→14:21)
[2019-11-23] MEDS: ONDANSETRON 4 MG/2 ML VIAL IVPUSH PRN (06:02)
[2019-11-23] MEDS ORDERED: LEVOTHYROXINE NA 100 MCG TABLET (FP) PO SCH (07:00)
[2019-11-23] MEDS: CEPHALEXIN MONOHYDRATE 500 MG CAPSULE (UD) PO SCH ×2 (07:02→14:24)
[2019-11-23 07:48] LABS: CALCIUM 8.5 mg/dl (8.5-10); CREATININE 2.5 mg/dl (0.55-1.3); POTASSIUM 5.8 mmol/L (3.5-5.1)
[2019-11-23 07:56] LABS: HEMATOCRIT 25.4 % (32.4-45.2); HEMOGLOBIN 8.7 GM/dl (10.7-15.3); MCH 30.1 pg (25.7-33.7); MEAN CELL VOLUME 88.3 fl (80-96); MEAN PLT VOLUME 9.2 fl (7.5-11.1); PLATELET COUNT 210 K/MM3 (134-434); RBC 2.88 M/mm3 (3.60-5.2); RDW 13.2 % (11.6-15.6); WHITE BLOOD COUNT 10.6 K/mm3 (4.0-10.8)
[2019-11-23] MEDS ORDERED: NOREPINEPHRINE BITARTRATE 4 MG/4 ML ML IV ONE (08:03)
[2019-11-23 08:50] VITALS: TEMP 98.7
[2019-11-23] MEDS ORDERED: RAPID SEQUENCE INTUBATION KIT NR ONE (09:43)
[2019-11-23] MEDS ORDERED: HEPARIN INFUSION - 25,000 UNITS/500 ML INFUS.BAG IVPB SCH ×2 (09:45→10:00)
[2019-11-23] MEDS ORDERED: HYDROCHLOROTHIAZIDE 25 MG TABLET (FP) PO SCH (10:00)
[2019-11-23] MEDS ORDERED: MULTIVITAMINS (DAILY MVI) TABLET (FP) PO SCH (10:00)
[2019-11-23] MEDS ORDERED: PANTOPRAZOLE 40 MG TABLET PO SCH (10:00)
[2019-11-23] MEDS ORDERED: LOSARTAN POTASSIUM 100 MG TABLET PO SCH (10:00)
[2019-11-23] MEDS ORDERED: PATIENT'S OWN MEDICATION (NON-FORMULARY) (Losartan/Hydrochlorothiazide [Losartan-Hctz 100- PO SCH (10:00)
[2019-11-23] MEDS ORDERED: ENOXAPARIN NA (PORCINE) 40 MG/0.4 ML DISP.SYRIN SQ SCH (10:00)
[2019-11-23] MEDS ORDERED: HEPARIN NA (PORCINE) 5,000 UNITS/ML 1ML VIAL IVPUSH PRN ×2 (10:00)
[2019-11-23] MEDS ORDERED: ASPIRIN 325 MG TABLET PO ONE (10:02)
[2019-11-23] MEDS ORDERED: PROPOFOL 1,000,000 MCG/100 ML VIAL ONE (10:08)
[2019-11-23] MEDS ORDERED: EPINEPHrine/PF 1 MG/1 ML (1:1,000) AMPULE ONE (10:24)
[2019-11-23] MEDS ORDERED: PROPOFOL 1,000,000 MCG/100 ML VIAL IVPB SCH (10:30)
[2019-11-23] MEDS ORDERED: NOREPINEPHRINE BITARTRATE 8,000 MCG/500 ML BAG IVPB SCH (10:30)
[2019-11-23] MEDS ORDERED: ALTEPLASE 50MG 50 MG/50 ML VIAL IVPB ONE (10:47)
[2019-11-23] MEDS ORDERED: INSULIN SLIDING SCALE (NOVOLOG) 1 VIAL SQ SCH (11:00)
--- NOTE | 2019-11-23 11:05 | ECHO ---
Name: MARIA COLLINS Exam:Adult Echocardiogram Study Date: 11/23/2019 10:10 AM Age: 84 yrs Reason For Study: R/O PE Height: 63 in Weight: 198 lb BSA: 1.9 m2 MMode/2D Measurements & Calculations IVSd: 1.4 cm Ao root diam: 2.8 cm LVIDd: 3.3 cm LA dimension: 4.4 cm LVIDs: 2.3 cm LVPWd: 0.98 cm EDV(Teich): 45.0 ml LVOT diam: 2.0 cm ESV(Teich): 18.3 ml Doppler Measurements & Calculations Ao V2 max: 66.7 cm/sec LV V1 max P.39 mmHg Ao max P.8 mmHg LV V1 max: 31.2 cm/sec SHELLEY(V,D): 1.5 cm2 MR max marty: 141.3 cm/sec TR max marty: 196.7 cm/sec MR max P.0 mmHg TR max P.8 mmHg PA V2 max: 74.6 cm/sec PA max P.2 mmHg Procedure Study Quality: Technically suboptimal. Left Ventricle The left ventricle is normal in size. Left ventricular systolic function is moderate to severely redu clarita. Ejection Fraction = 25-30%. Aneurysmal apex with surrounding segments. Right Ventricle The right ventricle is mild to moderately dilated. The right ventricular systolic function is moderat e to severely reduced. Atria The left atrium is mildly dilated. Right atrial size is normal. Mitral Valve There is moderate mitral valve thickening. There is mild mitral regurgitation. Tricuspid Valve The tricuspid valve is not well visualized, but is grossly normal. There is mild tricuspid regurgitat ion. Aortic Valve There is moderate aortic sclerosis.;. Pulmonic Valve The pulmonic valve is not well visualized. Great Vessels The aortic root is normal size. Pericardium/Pleura There is no pericardial effusion. Interpretation Summary Technically suboptimal study, many segments not well visualized LV: Normal size, mild basal septal hypertrophy, aneurysmal apex with surrounding segments, basal segm ents and possibly inferolateral wall with better contractility, systolic function mod-severely decreased, EF l ikely around 25-30% RV: Dilated and hypokinetic LA: Mildly dilated AV: Calcified, trace to mild AR Mild MR. Davis Germainjennifer 11/23/2019 11:04 AM
[2019-11-23] MEDS: ALTEPLASE 50MG 50 MG/50 ML VIAL IVPB ONE ×2 (11:49→14:14)
[2019-11-23 12:03] LABS: BASO % 0.5 % (0-2.0); EOS % 0.2 % (0-4.5); HEMATOCRIT 24.1 % (32.4-45.2); HEMOGLOBIN 7.9 GM/dl (10.7-15.3); LYMPH % 13.7 % (8-40); MCH 29.6 pg (25.7-33.7); MCHC 32.9 g/dl (32.0-36.0); MEAN CELL VOLUME 89.9 fl (80-96); MEAN PLT VOLUME 9.5 fl (7.5-11.1); MONO % 2.1 % (3.8-10.2); NEUT % 83.5 % (42.8-82.8); PLATELET COUNT 176 K/MM3 (134-434); RBC 2.69 M/mm3 (3.60-5.2); RDW 13.5 % (11.6-15.6); WHITE BLOOD COUNT 11.4 K/mm3 (4.0-10.8)
--- NOTE | 2019-11-23 12:06 | CONSULT ---
Consultation: REQUESTING PROVIDER: Yvette Gilbert CONSULT REQUEST: We have been asked to medically evaluate this patient for respiratory failure, cardiopulmonary arrest Patient seem at [place] ED and inpatient floor and in the process of being transferred to [facility] MICU. The extent of this documentation was gathered from conversations with staff and record review, as the patient was not located at [facility] yet at the time this note was written. HPI: 84YOF with h/o HTN, HLD, former smoker, b/l knee replacements in 2014, hyperthyroidism (on levothyroxine 100 mcg/day), GERD, frequent UTI, who is POD #4 from right total hip arthroplasty who was discharged home two days ago and felt a "pop" soon after arriving home. Came back to the [facility] with right hip pain and inability to ambulate yesterday. Found to have dislocated her right hip, orthopedist Dr. Mireles admitted her for repeated dislocation with plan for OR revision. She takes ASA 325/day since the procedure to prevent DVT, and Celebrex, but no AC. Has been on tramadol and Percocet for hip pain. Came in initially to the ED yesterday for hip pain. Initially was full code when she came into the [facility] on 11/21, but per family discussion on 11/23/19 became DNR. HOSPITAL COURSE: Patient admitted to [facility] from [facility], hypotensive, hypoxic, tachypneic, tachycardic overnight requiring supplemental O2 and peripheral pressors. Patient was full code per son Salvador. [facility] ICU became involved when decision was made to place CVC and switch to central pressors, plan was for transfer to [facility] ICU pending stabilization for EMS transfer. Patient went into cardiopulmonary arrest in the morning x4 episodes, ROSC achieved with Dr. Gamboa, VT seen on monitor. Procedures done: RSI and CVC by Dr. Pineda, also ACLS protocol Meds given: tPA push then ggt, amiodarone push, heparin ggt, Levophed ggt which was stopped d/t tachycarrhythmia, then epi and vaso ggt's. EKG: Sinus tachycardia with e/o right heart strain, then repeat EKG after amiodarone showed A-fib ROS: Pending LINES: CVC placed 11/23/19 TUBES: ETT placed 11/23/19, OGT placed 11/23/19 DRAINS: De La Cruz placed 11/23/19 EXAM: Pending ASSESSMENT / PLAN: 84YOF who is POD #4 from right total hip arthroplasty who dislocated the hip at home after discharge, re-presented to the [facility] for hip pain and inability to ambulate, admitted for hip revision but over the course of the night became more hypotensive, hypoxic, and tachycardic, c/f VTE, had several episodes of cardiopulmonary arrest with VT and AF noted, now intubated, sedated, on multiple pressors, tPA, heparin ggt, amiodarone. Family discussion today after these events has resulted in DNR status at this time. NEURO/PSYCH: Sedated/intubated, c/f anoxic brain injury given the multiple arrests -Check brainstem reflexes, pupillary reflexes -Repeat neuro exam when sedation can be lightened ENDOCRINE: Hypothyroidism -Resume levothyroxine when able CV: Cardiac arrest, hypotension requiring pressors, A-fib, right heart strain on echo, worsening troponinemia -Trend troponin and EKG -Dr. Disla following -Continue heparin ggt -Volume resuscitate -Continue Levophed RESP: Respiratory failure, hypoxia, c/f pulmonary embolism given recent immobility/orthopedic procedure, s/p tPA pushed -Continue heparin ggt -IR consult for thrombectomy v. catheter-delivered tPA GI: h/o GERD -IV Protonix RENAL/: JOHNNY -Consult placed to Dr. Smith HEME: Anemia -Serial h/h -Keep type/screen x2 in EMR -Transfuse if necessary ID: h/o frequent UTI -Monitor MSK: Right hip dislocation s/p surgery -PT/OT when able -Dr. Mireles following DERM: No concerns at this time -Monitor FEN: -IVF Prophylaxis: -DVT: SCDs, on heparin ggt -GI: Protonix daily Code Status/Family Conversation: Currently DNR per family discussion on 11/23/19 (was full code earlier this morning per [facility] staff's discussion with son Salvador). Dispo: ICU care. We will continue to follow the patient. Thank you for this consultative opportunity. Case discussed with ICU attending Dr. Amandeep Funes. Crystal Layne MD EM Resident PGY3 Problem List - Problems (1) Cardiopulmonary arrest with successful resuscitation Code(s): I46.9 - CARDIAC ARREST, CAUSE UNSPECIFIED (2) Hyperkalemia Code(s): E87.5 - HYPERKALEMIA (3) Acidosis Code(s): E87.2 - ACIDOSIS (4) Hypoxia Code(s): R09.02 - HYPOXEMIA (5) Hypotension Code(s): I95.9 - HYPOTENSION, UNSPECIFIED (6) Tachycardia Code(s): R00.0 - TACHYCARDIA, UNSPECIFIED (7) Anemia Code(s): D64.9 - ANEMIA, UNSPECIFIED (8) Hip dislocation, right Code(s): S73.004A - UNSPECIFIED DISLOCATION OF RIGHT HIP, INITIAL ENCOUNTER Qualifiers: Encounter type: initial encounter Qualified Code(s): S73.004A - Unspecified dislocation of right hip, initial encounter (9) Troponin level elevated Code(s): R79.89 - OTHER SPECIFIED ABNORMAL FINDINGS OF BLOOD CHEMISTRY (10) High transaminase levels Code(s): R74.0 - NONSPEC ELEV OF LEVELS OF TRANSAMNS & LACTIC ACID DEHYDRGNSE Visit type - Emergency Visit Emergency Visit: Yes ED Registration Date: 11/22/19 Care time: The patient presented to the Emergency Department on the above date and was hospitalized for further evaluation of their emergent condition. - New Patient This patient is new to me today: Yes Date on this admission: 11/23/19 - Critical Care Critical Care patient: No ATTENDING PHYSICIAN STATEMENT I saw and evaluated the patient. I reviewed the resident's note and discussed the case with the resident. I agree with the resident's findings and plan as documented. SUBJECTIVE: OBJECTIVE: ASSESSMENT AND PLAN:
[2019-11-23] MEDS ORDERED: AMIODARONE HCL 150 MG/3 ML VIAL IVPUSH ONE (12:10)
[2019-11-23 12:24] LABS: ALBUMIN 1.9 g/dl (3.4-5.0); BILIRUBIN,DIRECT 0.4 mg/dL (0.0-0.2); BILIRUBIN,TOTAL 1.1 mg/dl (0.2-1); CALCIUM 10.2 mg/dl (8.5-10); CREATININE 2.9 mg/dl (0.55-1.3); MAGNESIUM 2.5 mg/dL (1.8-2.4); TOT PROT 4.8 g/dl (6.4-8.2)
[2019-11-23] MEDS ORDERED: VASOPRESSIN 40 UNITS in SODIUM CHLORIDE 98 ML IVPB SCH (12:30)
[2019-11-23 12:33] LABS: PHOSPHOROUS 9.1 mg/dl (2.5-4.9); POTASSIUM 6.8 mmol/L (3.5-5.1)
[2019-11-23] MEDS ORDERED: MUPIROCIN 2% TOPICAL OINTMENT FOR DECOLONIZATION NS SCH (12:45)
[2019-11-23] MEDS ORDERED: INSULIN REGULAR HUMAN 100 UNITS/ML *VIAL ONE (12:50)
[2019-11-23 13:18] LABS: ARTERIAL BLD GAS O2 SATURATION 49.6 mmHg (95-98); ARTERIAL BLOOD GAS BASE EXCESS -17.7 mmol/L (-2-2)
[2019-11-23 13:34] LABS: ARTERIAL BLOOD GAS pH 6.937 (7.350-7.450)
[2019-11-23 13:35] LABS: ARTERIAL BLOOD GAS PO2 42.3 mmHg (80-100); VENT MODE A/C; VENT RATE 12
--- NOTE | 2019-11-23 13:51 | PN ---
Progress Note (short form) - Note Progress Note: Events noted throughout the day while I was in the OR. I appreciate the efforts of everyone that contributed to Jeanine' care.
[2019-11-23 14:15] VITALS: BP 77/35; PULSE 77
[2019-11-23] MEDS: FERROUS SO4 325 MG TABLET (FP) PO SCH (14:22)
[2019-11-23] MEDS: SENNOSIDES/DOCUSATE COMBO (SENNA PLUS) TABLET (UD) PO SCH (14:23)
[2019-11-23] MEDS: POTASSIUM CHLORIDE TABS 20 MEQ TABLET.ER (FP) PO SCH (14:23)
[2019-11-23] MEDS: ASCORBIC ACID 500 MG TABLET (FP) PO SCH (14:24)
[2019-11-23] MEDS ORDERED: AMIODARONE HCL INJECTION 450 MG in DEXTROSE 5%-WATER - 241 ML IVPB ONE (14:35)
--- NOTE | 2019-11-23 17:36 | PN ---
Progress Note (short form) - Note Progress Note: Called to evaluate Mrs. Rodriguez at around 10am for possible intubation secondary to a presumed PE. 84y/o female pod#4 s/p right THR on 11/19/19 who was re-admitted on for a right hip dislocation. Upon arrival, the patient was tachypnic, tachycardic with an O2 sat in the low 90s on 100% NRB. Pt. A&O x 3 c/o of severe sob, no cp. I explained why I was called and she agreed to intubation saying that she was getting tired from her effort to breathe. Pt. was pre-oxygenated, Propofol 100mg and Succinylcholine 100mg given. Glidescope with Mac 4 used. Grade 3 view. 7.0 ETT placed. BS=BL, +EtCO2. Vent: Vt-450, RR-12, FiO2-1.0, Peep-5 VSS post intubation Around 15-20 minutes after the intubation I was called back to the bedside for a cuff leak. While preparing to exchange the Ett, the patient became pulseless. ACLS was started with ROSC. At that point I exchanged the Ett with the Glidescope, +EtCO2, BS=BL. The patient became pulseless multiple times with ACLS performed and ROSC each time (please see nurses documentation for ACLS details). At approximately 11:35 I placed a right TLC under ultrasound guideance. At approximately 11:48 TPA was started. The patient became pulseless again at 12:46pm and then 1:10pm. Bothe times with ROSC. At approximately 1pm Dr. Gamboa and I had a detailed converation with the son and daughter about Mrs. Rodriguez's poor prognosis. They initially wanted us to continue to perform CPR should it be necessary. During the conversation, a code 99 was called on Mrs. Rodriguez to which we responded and invited the son and daughter in to observe. ROSC was achieved, and at that time the family made the pt. DNR. The patient at approximately 1:46pm
--- NOTE | 2019-11-23 19:08 | PROC ---
Intubation - Intubation Reason for Intubation: Respiratory Failure Time of Intubation: 10:00 Intubation Method: orotracheal Blade used: Glidescope Tube Size (cm): 7.0 Tube position @ lip (cm): 22 Tube position confirmed by: Direct visualization, CO2 detector, Breath sounds Breath Sounds after Intubation: equal
--- NOTE | 2019-11-23 19:10 | PROC ---
Intubation - Intubation Reason for Intubation: Other Time of Intubation: 10:38 Intubation Method: orotracheal Blade used: Glidescope Tube Size (cm): 7.0 Tube position @ lip (cm): 22 Tube position confirmed by: Direct visualization, CO2 detector, Breath sounds Breath Sounds after Intubation: equal (There was a leak in the Ett. This intubation was to replace the Ett with a leak)
--- NOTE | 2019-11-23 19:12 | PROC ---
Central Line Insertion Indication: Poor Venous Access, Vasopressor Risks and Benefits Explained: No (Code 99. Family consented) Consent on Chart: No (Code 99. Family consented) Central Line: Triple Lumen Catheter Sterile Technique: Yes Ultrasound Guided Assistance: Yes Position: Right Internal Jugular Post Insertion: Yes: Bilateral Breath Sounds Sterile Dressing Applied: Yes
[2019-11-23] MEDS ORDERED: CHLORHEXIDINE GLUCONATE 4% CLEANSER FOR DECOLONIZATION TP SCH (22:00)
[2019-11-24] MEDS ORDERED: PANTOPRAZOLE SODIUM 40 MG VIAL IVPUSH SCH (10:00)
--- NOTE | 2019-11-24 10:48 | RAPID ---
Physical Examination Vital Signs: Vital Signs Temperature 98.7 F 11/23/19 08:20 Pulse Rate 77 11/23/19 12:20 Respiratory Rate 16 11/23/19 10:40 Blood Pressure 77/35 L 11/23/19 12:20 O2 Sat by Pulse Oximetry (%) 96 11/23/19 10:40 Constitutional: Yes: Anxious, Moderate Distress Eyes: Yes: WNL Cardiovascular: Yes: Tachycardia Respiratory: Yes: Tachypnea Extremities: Yes: Other (Right hip surgical dressings c/d/i) Edema: No Peripheral Pulses WNL: Yes Neurological: Yes: Alert, Oriented Labs: CBC, BMP 11/23/19 11:30 11/23/19 12:05 Rapid Response - Rapid Response Assessment: At 9:30am, responded to patient's room at request of nursing staff to assess patient for tachycardia, tachypnea, and SOB. Patient was on NRB at 15L and sats were dropping to high 80s. Paged anesthesia and Dr. Pineda arrived. Decision made to emergently intubate the patient. Following intubation patient went into cardiac arrest five times and Drs. Pineda and Luis E conducted the code over a period of approximately 4 hours. Please refer to their documentation Outcome: Patient pronounced at 1:46pm. Critical Care Total Critical Care Time (in minutes): 60 Critical Care Statement: The care of this patient involved high complexity decision making to prevent further life threatening deterioration of the patient's condition and/or to evaluate & treat vital organ system(s) failure or risk of failure.
--- NOTE | 2019-11-25 14:09 | EKG ---
Test Reason : Blood Pressure : / mmHG Vent. Rate : 098 BPM Atrial Rate : 100 BPM P-R Int : 000 ms QRS Dur : 164 ms QT Int : 326 ms P-R-T Axes : 000 -22 107 degrees QTc Int : 416 ms WIDE QRS RHYTHM NON-SPECIFIC INTRA-VENTRICULAR CONDUCTION BLOCK ABNORMAL ECG WHEN COMPARED WITH ECG OF 09-MAY-2007 07:49, WIDE QRS RHYTHM HAS REPLACED SINUS RHYTHM VENT. RATE HAS INCREASED BY 38 BPM Confirmed by Usman Ramires MD ([id number]) on 11/25/2019 2:09:36 PM Referred By: SCOTT Confirmed By:Usman Ramires MD
[2019-11-25] MEDS ORDERED: ACETAMINOPHEN 325 MG TABLET (FP) PO PRN (21:00)
--- NOTE | 2019-12-10 08:53 | DS ---
Physical Exam: HOSPITAL COURSE: Date of Admission:11/22/19 Date of Discharge: 11/23/19 At 9:30am, responded to patient's room at request of nursing staff to assess patient for tachycardia, tachypnea, and SOB. Patient was on NRB at 15L and sats were dropping to high 80s. Paged anesthesia and Dr. Pineda arrived. Decision made to emergently intubate the patient. Following intubation patient went into cardiac arrest five times and Drs. Pineda and Luis E conducted the code over a period of approximately 4 hours. Please refer to their documentation Patient pronounced at 1:46pm. Minutes to complete discharge: 5 Discharge Summary Problems reviewed: Yes Reason For Visit: DISLOCATION OF RIGHT HIP Condition: - Instructions Referrals: Darion Mireles MD [Primary Care Provider] - Disposition: - Home Medications Comprehensive Discharge Medication List: Ambulatory Orders Atorvastatin Ca [Lipitor] 20 mg PO HS 10/15/18 Cholecalciferol (Vitamin D3) [Vitamin D3] 2,000 unit PO DAILY 10/15/18 Cyanocobalamin (Vitamin B-12) [Vitamin B12] 2,500 mcg PO DAILY 10/15/18 Levothyroxine [Synthroid -] 100 mcg PO DAILY 10/15/18 Losartan/Hydrochlorothiazide [Losartan-Hctz 100-25 mg Tab] 1 tab PO DAILY 10/15/18 Polyethylene Glycol 3350 [Miralax 119 gm Btl -] 1 appful PO HS 10/15/18 Potassium Chloride 20 meq PO BID 10/15/18 Amlodipine Besylate [Norvasc -] 5 mg PO HS 11/13/19 Cranberry 500 mg PO DAILY 11/13/19 Ascorbic Acid [Vitamin C -] 500 mg PO BID tablet 11/20/19 Aspirin [ASA -] 325 mg PO DAILY@0800 tablet 11/20/19 Celecoxib [CeleBREX -] 200 mg PO DAILY #30 capsule 11/20/19 Cephalexin Monohydrate [Keflex -] 500 mg PO TID #30 capsule 11/20/19 Multivitamins [Multivit ([facility] Formulary)] 1 tab PO DAILY tab 11/20/19 Omeprazole 20 mg PO DAILY #40 tablet. 11/20/19 Oxycodone HCl/Acetaminophen [Percocet 5-325 mg Tablet] 1 - 2 tab PO Q4H PRN #60 tablet MDD 10 11/20/19 traMADol HCL [Ultram -] 50 mg PO Q4H PRN #42 tablet MDD 6 11/20/19 This patient is new to me today: Yes Date on this admission: 12/10/19 Emergency Visit: Yes ED Registration Date: 11/22/19 Care time: The patient presented to the Emergency Department on the above date and was hospitalized for further evaluation of their emergent condition. Critical Care patient: Yes Total Critical Care Time (in minutes): 5 - Discharge Referral Referred to [facility] No
== END 2019-11-23 16:55 | disposition expired | DRG 559 ==
LOC: FER 16:43 → FM/S 21:20
PROVIDERS: ADMIT Student in an Organized Health Care Education/Training Program; ATTEND Nurse Practitioner Acute Care
PROC: 0CHY7BZ Insertion of Airway into Mouth and Throat, Via Natural or Artificial Opening (ICD-10-PCS; principal; 2019-11-23)
PROC: 5A1935Z Respiratory Ventilation, Less than 24 Consecutive Hours (ICD-10-PCS; 2019-11-23)
PROC: 5A12012 Performance of Cardiac Output, Single, Manual (ICD-10-PCS; 2019-11-23)
PROC: 3E03317 Introduction of Other Thrombolytic into Peripheral Vein, Percutaneous Approach (ICD-10-PCS; 2019-11-23)
PROC: 05HM33Z Insertion of Infusion Device into Right Internal Jugular Vein, Percutaneous Approach (ICD-10-PCS; 2019-11-23)
PROC: B543ZZA Ultrasonography of Right Jugular Veins, Guidance (ICD-10-PCS; 2019-11-23)
DX: T84.020A Dislocation of internal right hip prosthesis, initial encounter (principal); J96.01 Acute respiratory failure with hypoxia; I26.99 Other pulmonary embolism without acute cor pulmonale; E87.2 Acidosis; M96.89 Other intraoperative and postprocedural complications and disorders of the musculoskeletal system; N17.9 Acute kidney failure, unspecified; I47.2 Ventricular tachycardia; G89.18 Other acute postprocedural pain; I10 Essential (primary) hypertension; K21.9 Gastro-esophageal reflux disease without esophagitis; E78.5 Hyperlipidemia, unspecified; I46.9 Cardiac arrest, cause unspecified; E03.9 Hypothyroidism, unspecified; I48.91 Unspecified atrial fibrillation; I95.9 Hypotension, unspecified; E87.5 Hyperkalemia; D64.9 Anemia, unspecified; R74.0 Nonspecific elevation of levels of transaminase and lactic acid dehydrogenase [LDH]; Z96.653 Presence of artificial knee joint, bilateral; Y83.8 Other surgical procedures as the cause of abnormal reaction of the patient, or of later complication, without mention of misadventure at the time of the procedure
CPT/HCPCS: 36415; 36430; 36600; 71045-TC-FY; 72192-TC; 73523-TC-FY; 80048; 80053; 80076; 82550; 82553; 82803; 82962; 83605; 83735; 84100; 84484; 85025; 85027; 85730; 86850; 86900; 86901; 86922; 93005; 93306-TC; 94002; 99285-25; J1644; J2997; U0003